=== PATIENT | male | born 1990 | race Caucasian/White ===

== ENCOUNTER 2023-05-02 10:18 | Outpatient (CLI) | payer BC | END 2023-05-02 10:19 | disposition home or self-care (01) | LOC: BICULT 10:18 | PROVIDERS: ATTEND Family Medicine | DX: E78.1 Pure hyperglyceridemia (principal); R74.8 Abnormal levels of other serum enzymes | CPT/HCPCS: 76700 ==

== ENCOUNTER 2023-08-16 13:25 | Outpatient (CLI) | payer OTHER | END 2023-08-16 13:26 | disposition home or self-care (01) | LOC: BICCT 13:25 | PROVIDERS: ATTEND Family Medicine | DX: E78.5 Hyperlipidemia, unspecified (principal) | CPT/HCPCS: 75571 ==